=== PATIENT | male | born 1990 | race African-American/Black ===

== ENCOUNTER 2024-06-18 17:06 | Emergency (ER) | payer MEDICAID ==
[~2024-06-18] VITALS: Ht 177.8 cm; Wt 73.0 kg
[2024-06-18 17:09] VITALS: TEMP 98.6; O2SAT 97
[2024-06-18] MEDS: SODIUM CHLORIDE 0.9% 1,000 ML IV ONE (17:41)
[2024-06-18 17:54] LABS: CHLORIDE 115 mEq/L (98-107); POTASSIUM 3.3 mEq/L (3.5-5.1); SODIUM 140 mEq/L (136-145)
[2024-06-18 17:55] LABS: BASOPHILS % 0.6 % (0.0-2.0); CALCIUM 7.5 mg/dL (8.7-10.4); CARBON DIOXIDE 15 mEq/L (21-32); DIFFERENTIAL COMMENT 0; EOSINOPHILS % 0.7 % (0.0-5.0); HEMATOCRIT. 41.6 % (42.0-52.0); LYMPHOCYTES % 44.1 % (20.0-50.0); MEAN CORPUSCULAR HEMOGLOBIN 32.8 pg (28.0-32.0); MEAN CORPUSCULAR HGB CONC 31.3 g/dL (31.0-37.0); MEAN CORPUSCULAR VOLUME 104.7 fL (80.0-94.0); MEAN PLATELET VOLUME 9.2 fl (7.4-10.4); MONOCYTES % 11.5 % (2.0-8.0); NEUTROPHILS % 43.1 % (40.0-76.0); PLATELET 104 x1000/uL (130-400); RED BLOOD CELL COUNT 3.97 mill/uL (4.7-6.1); RED CELL DISTRIBUTION WIDTH 15.5 % (11.6-14.6); WHITE BLOOD COUNT 3.8 x1000/uL (4.5-11.0)
[2024-06-18 18:00] LABS: CREATININE 0.6 mg/dL (0.6-1.3); GLUCOSE 73 mg/dL (70-105)
[2024-06-18 18:01] LABS: TROPONIN I HIGH SENSITIVITY 5 ng/L (3.0-53)
[2024-06-18 18:02] LABS: ALANINE AMINOTRANSFERASE 87 IU/L (10-49); ALBUMIN 3.6 g/dL (3.2-4.8); ASPARTATE AMINOTRANSFERASE 146 IU/L (<34)
[2024-06-18 18:03] LABS: BILIRUBIN TOTAL 0.5 mg/dL (0.1-1.0); PROTEIN TOTAL 6.1 g/dL (6.0-8.3)
[2024-06-18 18:09] LABS: UREA NITROGEN BLOOD < 5 mg/dL (9-23)
[2024-06-18] MEDS: CALCIUM 1250MG TABLET (500MG ELEMENTAL CALCIUM) PO ONE (19:30)
[2024-06-18] MEDS: POTASSIUM CHLORIDE 20MEQ TABLET SR PO ONE (19:30)
[2024-06-18] MEDS: ONDANSETRON 4MG ODT PO ONE (19:30)
[2024-06-18 19:37] VITALS: BP 145/88; PULSE 75; RESP 21; O2SAT 99
== END 2024-06-18 19:50 | disposition home or self-care (01) ==
LOC: ER 17:06
DX: R56.9 Unspecified convulsions (principal); R55 Syncope and collapse; E83.51 Hypocalcemia; E87.6 Hypokalemia; I10 Essential (primary) hypertension; F12.10 Cannabis abuse, uncomplicated
CPT/HCPCS: 99285; 96360; 70450; 71045; 80053; 85025; 84484; 36415; 93005; Q0162; J7030